=== PATIENT | male | born 1960 | race African-American/Black ===

== ENCOUNTER 2020-10-30 11:34 | Outpatient (CLI) | payer BC | END 2020-10-30 11:35 | disposition home or self-care (01) | LOC: BICRAD 11:34 | PROVIDERS: ATTEND Nurse Practitioner Family | DX: M25.551 Pain in right hip (principal); M16.11 Unilateral primary osteoarthritis, right hip ==

== ENCOUNTER 2022-01-30 10:27 | Outpatient (CLI) | payer BC | END 2022-01-30 10:28 | disposition home or self-care (01) | LOC: SCSRAD 10:27 | PROVIDERS: ATTEND Family Medicine | DX: M54.2 Cervicalgia (principal); M47.812 Spondylosis without myelopathy or radiculopathy, cervical region | CPT/HCPCS: 72040 ==

== ENCOUNTER 2023-06-03 08:09 | Outpatient (CLI) | payer BC | END 2023-06-03 08:10 | disposition home or self-care (01) | LOC: SCSMRI 08:09 → EDBD 08:30 | PROVIDERS: ATTEND Family Medicine | DX: G93.0 Cerebral cysts (principal) | CPT/HCPCS: 70552 ==